=== PATIENT | female | born 1975 | race Asian ===

== ENCOUNTER 2017-01-31 16:26 | Emergency (ER) | payer OTHER ==
[~2017-01-31] VITALS: Ht 167.6 cm; Wt 112.3 kg
== END 2017-01-31 21:46 | disposition home or self-care (01) ==
LOC: ED 16:26
DX: R00.2 Palpitations (principal)
CPT/HCPCS: 93005; 99283

== ENCOUNTER 2017-09-02 17:39 | Emergency (ER) | payer OTHER ==
[~2017-09-02] VITALS: Ht 167.6 cm; Wt 113.4 kg
== END 2017-09-02 19:52 | disposition home or self-care (01) ==
LOC: ED 17:39
DX: M25.562 Pain in left knee (principal); M25.462 Effusion, left knee
CPT/HCPCS: 96372; 99282; J1885

== ENCOUNTER 2021-07-31 09:52 | Outpatient (CLI) | payer OTHER | END 2021-07-31 19:02 | disposition home or self-care (01) | LOC: RAD 09:52 | PROVIDERS: ATTEND Internal Medicine | DX: M19.072 Primary osteoarthritis, left ankle and foot (principal); M19.071 Primary osteoarthritis, right ankle and foot; M72.2 Plantar fascial fibromatosis; E66.9 Obesity, unspecified; I10 Essential (primary) hypertension ==